=== PATIENT | male | born 1945 | race African-American/Black ===

== ENCOUNTER → 2020-07-08 | Outpatient (CLI) | payer MEDICARE ==
[~2020-07-08] MED LIST: OCUFLOX 0.3% 5 M5 ML OPH; PRED FORTE5 ML OP
== END | disposition home or self-care (01) ==
LOC: COVID19 10:28
PROVIDERS: ATTEND Ophthalmology
DX: Z01.818 Encounter for other preprocedural examination (principal); Z20.822 Contact with and (suspected) exposure to COVID-19

== ENCOUNTER → 2020-07-13 | Day surgery (SDC) | payer MEDICARE ==
[~2020-07-13] VITALS: Ht 177.8 cm; Wt 63.5 kg
[2020-07-13 12:15] VITALS: BP 157/93
[2020-07-13 13:42] VITALS: BP 127/57
[2020-07-13 13:57] VITALS: BP 120/58
[2020-07-13 14:12] VITALS: BP 124/77
[2020-07-13 15:55] VITALS: BP 126/37
== END ==
LOC: SDC 07-08 11:45
PROVIDERS: ATTEND Ophthalmology
DX: H25.811 Combined forms of age-related cataract, right eye (principal); F17.210 Nicotine dependence, cigarettes, uncomplicated

== ENCOUNTER → 2020-08-12 | Outpatient (CLI) | payer MEDICARE | END | disposition home or self-care (01) | LOC: COVID19 11:05 | PROVIDERS: ATTEND Ophthalmology | DX: Z01.812 Encounter for preprocedural laboratory examination (principal); Z20.822 Contact with and (suspected) exposure to COVID-19 ==

== ENCOUNTER → 2020-08-17 | Day surgery (SDC) | payer MEDICARE ==
[~2020-08-17] VITALS: Ht 177.8 cm; Wt 65.8 kg
[2020-08-17 11:00] VITALS: BP 149/80
[2020-08-17 12:28] VITALS: BP 110/66
[2020-08-17 12:43] VITALS: BP 112/60
[2020-08-17 12:58] VITALS: BP 110/58
== END ==
LOC: SDC 08-12 15:30
PROVIDERS: ATTEND Ophthalmology
DX: H25.812 Combined forms of age-related cataract, left eye (principal); F17.210 Nicotine dependence, cigarettes, uncomplicated

== ENCOUNTER 2020-11-05 11:16 | Inpatient (IN) | payer MEDICARE ==
[~2020-11-05] VITALS: Ht 175.2 cm; Wt 48.6 kg
[~2020-11-05 11:16] MED LIST changes: +ASPIRIN ADULT L81 M2 PO; +K-PHOS500 MG PO; +LIPITOR10 MG PO; +LOPRESSOR25 MG PO
[2020-11-05 11:26] VITALS: BP 121/80
[2020-11-05 12:00] LABS: BASO % 0.3 % (0.0-1.0); EOS % 0.1 % (1.0-4.0); HEMATOCRIT 39.8 % (42.0-52.0); LYMPH % 20.5 % (27.0-41.0); MEAN CELL VOLUME 86.7 fl (80.0-94.0); MEAN CORPUSCULAR HGB 27.2 pg (27.0-31.0); MEAN CORPUSCULAR HGB CONC 31.4 g/dl (33.0-37.0); MEAN PLATELET VOLUME 8.7 fl (9.6-12.3); MONO # 0.7 10*3/uL (0.1-1.0); MONO % 7.2 % (3.0-9.0); NEUT # 6.8 10*3/uL (2.3-7.9); NEUT % 71.3 % (47.0-73.0); PLATELET COUNT AUTOMATED 400 10*3/uL (130-400); RED BLOOD COUNT 4.59 10*6/uL (4.50-5.90); RED CELL DISTRI WIDTH 17.7 % (0-14.5); WHITE BLOOD COUNT 9.5 10*3/uL (4.8-10.8)
[2020-11-05 12:14] LABS: ALBUMIN 2.5 gm/dl (3.1-4.5); ALKALINE PHOSPHATASE 62 U/L (45-117); BUN 10 mg/dl (7-24); CHLORIDE 103 mmol/L (98-107); CREATININE 1.16 mg/dL (0.70-1.30); POTASSIUM 4.3 mmol/L (3.5-5.1); SGOT/AST 17 IU/L (3-35); SGPT/ALT 13 U/L (12-78); SODIUM 137 mmol/L (136-145); TOTAL PROTEIN 6.9 gm/dL (6.4-8.2)
[2020-11-05 12:16] LABS: TROPONIN I 0.079 ng/ml (<0.045)
[2020-11-05 14:22] VITALS: BP 117/71
[2020-11-05] MEDS ORDERED: IBUPROFEN600 MG PO (14:40)
[2020-11-05 16:00] VITALS: BP 145/81
[2020-11-05 20:09] LABS: BILIRUBIN 1+ (Negative); BLOOD Negative (Negative); CLARITY Cloudy (Clear); COLOR Orange (Yellow); GLUCOSE Negative (Negative); KETONE Negative (Negative); NITRITE Positive (Negative); SPECIFIC GRAVITY >= 1.030 (1.001-1.030)
[2020-11-05 20:12] VITALS: BP 139/74
[2020-11-05 20:18] LABS: BACTERIA TRACE; MUCOUS 3+
[2020-11-05 20:19] LABS: LEUKO ESTERASE 1+ (Negative)
[2020-11-06] VITALS: BP 134/87
[2020-11-06 06:08] LABS: BASO % 0.3 % (0.0-1.0); EOS % 0.1 % (1.0-4.0); HEMATOCRIT 38.3 % (42.0-52.0); LYMPH # 1.7 10*3/uL (1.3-4.4); MEAN CELL VOLUME 85.9 fl (80.0-94.0); MEAN CORPUSCULAR HGB 27.4 pg (27.0-31.0); MEAN CORPUSCULAR HGB CONC 31.9 g/dl (33.0-37.0); MEAN PLATELET VOLUME 9.1 fl (9.6-12.3); MONO # 0.7 10*3/uL (0.1-1.0); MONO % 8.1 % (3.0-9.0); NEUT # 6.1 10*3/uL (2.3-7.9); NEUT % 70.9 % (47.0-73.0); PLATELET COUNT AUTOMATED 368 10*3/uL (130-400); RED BLOOD COUNT 4.46 10*6/uL (4.50-5.90); RED CELL DISTRI WIDTH 17.6 % (0-14.5); WHITE BLOOD COUNT 8.6 10*3/uL (4.8-10.8)
[2020-11-06 06:39] LABS: ALBUMIN 2.3 gm/dl (3.1-4.5); BUN 9 mg/dl (7-24); CHLORIDE 107 mmol/L (98-107); POTASSIUM 4.3 mmol/L (3.5-5.1); SGOT/AST 19 IU/L (3-35); SGPT/ALT 12 U/L (12-78); SODIUM 139 mmol/L (136-145); TOTAL PROTEIN 6.6 gm/dL (6.4-8.2)
[2020-11-06 06:40] LABS: ALKALINE PHOSPHATASE 60 U/L (45-117)
[2020-11-06 10:09] VITALS: BP 106/70
[2020-11-06 12:00] VITALS: BP 118/82
[2020-11-06 16:00] VITALS: BP 125/81
[2020-11-06 20:00] VITALS: BP 104/73
[2020-11-07] VITALS: BP 101/68
[2020-11-07 06:49] LABS: BASO % 0.3 % (0.0-1.0); EOS % 0.5 % (1.0-4.0); HEMATOCRIT 35.5 % (42.0-52.0); LYMPH # 1.6 10*3/uL (1.3-4.4); LYMPH % 25.9 % (27.0-41.0); MEAN CELL VOLUME 87.4 fl (80.0-94.0); MEAN CORPUSCULAR HGB 27.6 pg (27.0-31.0); MEAN CORPUSCULAR HGB CONC 31.5 g/dl (33.0-37.0); MEAN PLATELET VOLUME 9.3 fl (9.6-12.3); MONO # 0.5 10*3/uL (0.1-1.0); MONO % 7.4 % (3.0-9.0); NEUT # 4.2 10*3/uL (2.3-7.9); NEUT % 65.4 % (47.0-73.0); PLATELET COUNT AUTOMATED 346 10*3/uL (130-400); RED BLOOD COUNT 4.06 10*6/uL (4.50-5.90); RED CELL DISTRI WIDTH 17.8 % (0-14.5); WHITE BLOOD COUNT 6.3 10*3/uL (4.8-10.8)
[2020-11-07 07:11] LABS: ALBUMIN 2.1 gm/dl (3.1-4.5); ALKALINE PHOSPHATASE 53 U/L (45-117); BUN 10 mg/dl (7-24); CHLORIDE 108 mmol/L (98-107); CREATININE 0.76 mg/dL (0.70-1.30); POTASSIUM 5.2 mmol/L (3.5-5.1); SGOT/AST 34 IU/L (3-35); SGPT/ALT 14 U/L (12-78); SODIUM 139 mmol/L (136-145); TOTAL PROTEIN 5.9 gm/dL (6.4-8.2)
[2020-11-07 08:00] VITALS: BP 112/60
[2020-11-07 12:00] VITALS: BP 108/70
[2020-11-07 16:00] VITALS: BP 120/70
[2020-11-07 20:00] VITALS: BP 109/73
[2020-11-08] VITALS (8 sets, daily range): BP systolic 108–134; BP diastolic 58–86
[2020-11-08 06:59] LABS: BUN 9 mg/dl (7-24); CHLORIDE 110 mmol/L (98-107); CREATININE 0.53 mg/dL (0.70-1.30); SODIUM 138 mmol/L (136-145)
[2020-11-08 07:04] LABS: POTASSIUM 3.8 mmol/L (3.5-5.1)
[2020-11-08 10:30] LABS: BASO % 0.1 % (0.0-1.0); EOS % 0.6 % (1.0-4.0); HEMATOCRIT 34.4 % (42.0-52.0); LYMPH # 2.1 10*3/uL (1.3-4.4); LYMPH % 30.1 % (27.0-41.0); MEAN CORPUSCULAR HGB CONC 30.2 g/dl (33.0-37.0); MEAN PLATELET VOLUME 9.5 fl (9.6-12.3); MONO # 0.6 10*3/uL (0.1-1.0); MONO % 8.4 % (3.0-9.0); NEUT # 4.3 10*3/uL (2.3-7.9); NEUT % 60.5 % (47.0-73.0); PLATELET COUNT AUTOMATED 301 10*3/uL (130-400); RED BLOOD COUNT 3.72 10*6/uL (4.50-5.90); RED CELL DISTRI WIDTH 17.9 % (0-14.5)
[2020-11-08 10:31] LABS: MEAN CELL VOLUME 92.5 fl (80.0-94.0)
[2020-11-09] VITALS: BP 110/69
[2020-11-09 06:45] LABS: BASO % 0.5 % (0.0-1.0); EOS # 0.1 10*3/uL (0.0-0.4); EOS % 0.8 % (1.0-4.0); HEMATOCRIT 35.9 % (42.0-52.0); LYMPH # 1.9 10*3/uL (1.3-4.4); LYMPH % 29.6 % (27.0-41.0); MEAN CORPUSCULAR HGB CONC 31.8 g/dl (33.0-37.0); MEAN PLATELET VOLUME 9.4 fl (9.6-12.3); MONO # 0.5 10*3/uL (0.1-1.0); MONO % 7.5 % (3.0-9.0); NEUT % 61.4 % (47.0-73.0); PLATELET COUNT AUTOMATED 356 10*3/uL (130-400); RED BLOOD COUNT 4.07 10*6/uL (4.50-5.90); RED CELL DISTRI WIDTH 17.7 % (0-14.5); WHITE BLOOD COUNT 6.5 10*3/uL (4.8-10.8)
[2020-11-09 06:47] LABS: MEAN CELL VOLUME 88.2 fl (80.0-94.0)
[2020-11-09 06:59] LABS: BUN 9 mg/dl (7-24); CHLORIDE 108 mmol/L (98-107); CREATININE 0.58 mg/dL (0.70-1.30); POTASSIUM 3.7 mmol/L (3.5-5.1); SODIUM 139 mmol/L (136-145)
[2020-11-09 07:08] LABS: PREALBUMIN 6 mg/dl (20-40)
[2020-11-09 08:00] VITALS: BP 104/70
[2020-11-09 12:00] VITALS: BP 115/72; BP 125/78
[2020-11-09 16:00] VITALS: BP 112/74; BP 112/76
[2020-11-09 20:00] VITALS: BP 102/67
[2020-11-10] VITALS: BP 96/63
[2020-11-10 06:30] LABS: BASO % 0.2 % (0.0-1.0); EOS % 0.4 % (1.0-4.0); HEMATOCRIT 31.7 % (42.0-52.0); LYMPH # 1.6 10*3/uL (1.3-4.4); LYMPH % 28.4 % (27.0-41.0); MEAN CELL VOLUME 85.9 fl (80.0-94.0); MEAN CORPUSCULAR HGB 27.6 pg (27.0-31.0); MEAN CORPUSCULAR HGB CONC 32.2 g/dl (33.0-37.0); MEAN PLATELET VOLUME 9.2 fl (9.6-12.3); MONO # 0.5 10*3/uL (0.1-1.0); MONO % 9.3 % (3.0-9.0); NEUT # 3.4 10*3/uL (2.3-7.9); NEUT % 61.3 % (47.0-73.0); PLATELET COUNT AUTOMATED 317 10*3/uL (130-400); RED BLOOD COUNT 3.69 10*6/uL (4.50-5.90); RED CELL DISTRI WIDTH 17.4 % (0-14.5); WHITE BLOOD COUNT 5.5 10*3/uL (4.8-10.8)
[2020-11-10 06:46] LABS: ALKALINE PHOSPHATASE 46 U/L (45-117); BUN 12 mg/dl (7-24); CHLORIDE 108 mmol/L (98-107); CREATININE 0.61 mg/dL (0.70-1.30); POTASSIUM 3.8 mmol/L (3.5-5.1); SGOT/AST 24 IU/L (3-35); SGPT/ALT 15 U/L (12-78); SODIUM 134 mmol/L (136-145); TOTAL PROTEIN 5.4 gm/dL (6.4-8.2)
[2020-11-10 08:00] VITALS: BP 98/68
[2020-11-10 12:00] VITALS: BP 101/69
[2020-11-10 16:00] VITALS: BP 104/69
[2020-11-10 20:00] VITALS: BP 119/74
[2020-11-11] VITALS (8 sets, daily range): BP systolic 97–130; BP diastolic 53–83
[2020-11-11 06:28] LABS: BASO % 0.2 % (0.0-1.0); EOS % 0.1 % (1.0-4.0); HEMATOCRIT 33.8 % (42.0-52.0); LYMPH # 1.6 10*3/uL (1.3-4.4); LYMPH % 17.7 % (27.0-41.0); MEAN CELL VOLUME 88.3 fl (80.0-94.0); MEAN CORPUSCULAR HGB 27.9 pg (27.0-31.0); MEAN CORPUSCULAR HGB CONC 31.7 g/dl (33.0-37.0); MEAN PLATELET VOLUME 9.4 fl (9.6-12.3); MONO # 0.5 10*3/uL (0.1-1.0); MONO % 5.7 % (3.0-9.0); NEUT # 6.8 10*3/uL (2.3-7.9); PLATELET COUNT AUTOMATED 310 10*3/uL (130-400); RED BLOOD COUNT 3.83 10*6/uL (4.50-5.90); RED CELL DISTRI WIDTH 17.6 % (0-14.5); WHITE BLOOD COUNT 8.9 10*3/uL (4.8-10.8)
[2020-11-11 06:41] LABS: BUN 14 mg/dl (7-24); CHLORIDE 104 mmol/L (98-107); CREATININE 0.71 mg/dL (0.70-1.30); POTASSIUM 4.2 mmol/L (3.5-5.1); SODIUM 134 mmol/L (136-145)
[2020-11-12] VITALS: BP 117/75
[2020-11-12 06:04] LABS: BUN 13 mg/dl (7-24); CHLORIDE 105 mmol/L (98-107); CREATININE 0.55 mg/dL (0.70-1.30); SODIUM 132 mmol/L (136-145)
[2020-11-12 06:06] LABS: POTASSIUM 4.1 mmol/L (3.5-5.1)
[2020-11-12 08:00] VITALS: BP 127/70
[2020-11-12 12:00] VITALS: BP 113/71
[2020-11-12 16:00] VITALS: BP 115/67
[2020-11-12 20:00] VITALS: BP 129/71
[2020-11-13] VITALS: BP 107/64
[2020-11-13 05:42] LABS: BUN 14 mg/dl (7-24); CHLORIDE 104 mmol/L (98-107); CREATININE 0.65 mg/dL (0.70-1.30); SODIUM 131 mmol/L (136-145)
[2020-11-13 06:00] LABS: BASO % 0.1 % (0.0-1.0); LYMPH # 1.3 10*3/uL (1.3-4.4); LYMPH % 8.8 % (27.0-41.0); MEAN CELL VOLUME 86.1 fl (80.0-94.0); MEAN CORPUSCULAR HGB 27.8 pg (27.0-31.0); MEAN CORPUSCULAR HGB CONC 32.4 g/dl (33.0-37.0); MEAN PLATELET VOLUME 9.3 fl (9.6-12.3); MONO # 0.7 10*3/uL (0.1-1.0); MONO % 5.1 % (3.0-9.0); NEUT # 12.3 10*3/uL (2.3-7.9); NEUT % 85.3 % (47.0-73.0); PLATELET COUNT AUTOMATED 340 10*3/uL (130-400); RED BLOOD COUNT 3.95 10*6/uL (4.50-5.90); RED CELL DISTRI WIDTH 17.6 % (0-14.5); WHITE BLOOD COUNT 14.4 10*3/uL (4.8-10.8)
[2020-11-13 08:00] VITALS: BP 108/62
[2020-11-13 12:00] VITALS: BP 105/59
== END 2020-11-13 16:31 | disposition short-term general hospital (02) | DRG 380 ==
LOC: ED 11:16 → 5E 13:32 → EDHOLD 13:32 → 5E 13:56
PROVIDERS: Emergency Medicine; Family Medicine; Internal Medicine; Registered Nurse; Student in an Organized Health Care Education/Training Program; ADMIT Student in an Organized Health Care Education/Training Program; ATTEND Student in an Organized Health Care Education/Training Program
PROC: 0D758ZZ Dilation of Esophagus, Via Natural or Artificial Opening Endoscopic (ICD-10-PCS; principal; 2020-11-08)
DX: K22.70 Barrett's esophagus without dysplasia (principal); I21.A1 Myocardial infarction type 2; E43 Unspecified severe protein-calorie malnutrition; R64 Cachexia; K56.699 Other intestinal obstruction unspecified as to partial versus complete obstruction; I74.5 Embolism and thrombosis of iliac artery; Z68.1 Body mass index [BMI] 19.9 or less, adult; K22.2 Esophageal obstruction; K20.90 Esophagitis, unspecified without bleeding; R62.7 Adult failure to thrive; K08.89 Other specified disorders of teeth and supporting structures; F17.210 Nicotine dependence, cigarettes, uncomplicated; R13.10 Dysphagia, unspecified; Z20.822 Contact with and (suspected) exposure to COVID-19; F10.20 Alcohol dependence, uncomplicated; R26.2 Difficulty in walking, not elsewhere classified; R77.8 Other specified abnormalities of plasma proteins; I73.9 Peripheral vascular disease, unspecified; D49.0 Neoplasm of unspecified behavior of digestive system; Z82.49 Family history of ischemic heart disease and other diseases of the circulatory system

== ENCOUNTER 2020-12-16 10:23 | Inpatient (IN) | payer MEDICARE ==
[~2020-12-16] VITALS: Ht 3139 cm; Wt 25.9 kg
[2020-12-16] VITALS (7 sets, daily range): BP systolic 87–113; BP diastolic 53–68
[~2020-12-16 10:23] MED LIST changes: +IBUPROFEN600 MG PO
[2020-12-16 10:50] LABS: BASO % 0.5 % (0.0-1.0); EOS # 0.1 10*3/uL (0.0-0.4); HEMATOCRIT 35.6 % (42.0-52.0); LYMPH # 2.5 10*3/uL (1.3-4.4); LYMPH % 29.7 % (27.0-41.0); MEAN CORPUSCULAR HGB 28.7 pg (27.0-31.0); MEAN CORPUSCULAR HGB CONC 31.2 g/dl (33.0-37.0); MEAN PLATELET VOLUME 8.1 fl (9.6-12.3); MONO # 0.5 10*3/uL (0.1-1.0); NEUT # 5.2 10*3/uL (2.3-7.9); NEUT % 62.4 % (47.0-73.0); PLATELET COUNT AUTOMATED 427 10*3/uL (130-400); RED BLOOD COUNT 3.87 10*6/uL (4.50-5.90); RED CELL DISTRI WIDTH 18.9 % (0-14.5); WHITE BLOOD COUNT 8.3 10*3/uL (4.8-10.8)
[2020-12-16 11:07] LABS: ALBUMIN 2.5 gm/dl (3.1-4.5); ALKALINE PHOSPHATASE 110 U/L (45-117); BUN 18 mg/dl (7-24); CHLORIDE 109 mmol/L (98-107); CREATININE 0.86 mg/dL (0.70-1.30); LIPASE 230 U/L (73-393); POTASSIUM 4.3 mmol/L (3.5-5.1); SGOT/AST 23 IU/L (3-35); SGPT/ALT 30 U/L (12-78); SODIUM 138 mmol/L (136-145); TOTAL PROTEIN 7.6 gm/dL (6.4-8.2)
[2020-12-16 11:09] LABS: TROPONIN I 0.071 ng/ml (<0.045)
[2020-12-16 12:00] LABS: BILIRUBIN Negative (Negative); BLOOD Negative (Negative); CLARITY Cloudy (Clear); COLOR Yellow (Yellow); GLUCOSE Negative (Negative); KETONE Trace (Negative); NITRITE Negative (Negative); SPECIFIC GRAVITY 1.025 (1.001-1.030)
[2020-12-16 12:06] LABS: LEUKO ESTERASE Trace (Negative)
[2020-12-16 12:34] LABS: BACTERIA TRACE; CALCIUM OXALATE CRYSTALS 2+; MUCOUS TRACE
[2020-12-16] MEDS ORDERED: ASPIRIN CHEWABL81 MG PO (18:14)
[2020-12-16] MEDS ORDERED: LIPITOR40 MG PO (18:15)
[2020-12-16] MEDS ORDERED: LEVOFLOXACIN500 MG PO (18:17)
[2020-12-16] MEDS ORDERED: TYLENOL325 M1 PO (18:19)
[2020-12-16] MEDS ORDERED: MULTIPLE VITAM1 EAC1 PO (18:19)
[2020-12-16] MEDS ORDERED: ANTI-DIARRHEAL2 MG PO (18:21)
[2020-12-17] VITALS: BP 103/52
[2020-12-17 06:02] LABS: BASO # 0.1 10*3/uL (0.0-0.1); BASO % 0.7 % (0.0-1.0); EOS # 0.1 10*3/uL (0.0-0.4); EOS % 1.4 % (1.0-4.0); HEMATOCRIT 31.6 % (42.0-52.0); LYMPH # 1.9 10*3/uL (1.3-4.4); LYMPH % 27.6 % (27.0-41.0); MEAN CELL VOLUME 90.3 fl (80.0-94.0); MEAN CORPUSCULAR HGB 29.1 pg (27.0-31.0); MEAN CORPUSCULAR HGB CONC 32.3 g/dl (33.0-37.0); MEAN PLATELET VOLUME 7.9 fl (9.6-12.3); MONO # 0.4 10*3/uL (0.1-1.0); MONO % 5.4 % (3.0-9.0); NEUT # 4.5 10*3/uL (2.3-7.9); NEUT % 64.6 % (47.0-73.0); PLATELET COUNT AUTOMATED 371 10*3/uL (130-400); RED CELL DISTRI WIDTH 18.8 % (0-14.5)
[2020-12-17 06:09] LABS: BUN 15 mg/dl (7-24); CHLORIDE 112 mmol/L (98-107); CREATININE 0.63 mg/dL (0.70-1.30); POTASSIUM 4.2 mmol/L (3.5-5.1); SODIUM 141 mmol/L (136-145)
[2020-12-17 08:00] VITALS: BP 102/63
[2020-12-17 12:00] VITALS: BP 88/57; BP 92/64
[2020-12-17 15:17] LABS: POTASSIUM 3.9 mmol/L (3.5-5.1)
[2020-12-17 16:00] VITALS: BP 90/61
[2020-12-17 20:55] VITALS: BP 98/61
[2020-12-18] VITALS: BP 99/56
[2020-12-18 11:42] VITALS: BP 88/56
== END 2020-12-18 13:00 | DRG 689 ==
LOC: ED 10:23 → EDHOLD 12:32 → 4E 20:35
PROVIDERS: Emergency Medicine; ADMIT Internal Medicine; ATTEND Internal Medicine
DX: N39.0 Urinary tract infection, site not specified (principal); G93.41 Metabolic encephalopathy; E43 Unspecified severe protein-calorie malnutrition; I74.5 Embolism and thrombosis of iliac artery; I49.3 Ventricular premature depolarization; E86.0 Dehydration; R13.10 Dysphagia, unspecified; F17.210 Nicotine dependence, cigarettes, uncomplicated; Z85.038 Personal history of other malignant neoplasm of large intestine; Z90.49 Acquired absence of other specified parts of digestive tract; Z82.49 Family history of ischemic heart disease and other diseases of the circulatory system; Z93.3 Colostomy status; Z79.899 Other long term (current) drug therapy; Z79.82 Long term (current) use of aspirin